=== PATIENT | male | born 1975 | race Caucasian/White ===

== ENCOUNTER 2019-12-23 17:24 | Emergency (ER) | payer BC ==
[~2019-12-23] VITALS: Ht 165.1 cm; Wt 70.3 kg
[~2019-12-23 17:24] MED LIST: ALPR.5T PO; HYDR1TAB PO
[2019-12-23] MEDS ORDERED: FLUORESCEIN (FLUOR-I-STRIPS) 1 MG STRP OU ONE (17:45)
[2019-12-23] MEDS ORDERED: BSS 15 ML IR ONE (17:45)
[2019-12-23] MEDS ORDERED: TETRACAINE 0.5% OPHTH SOLN 4 ML BTL (SINGLE DOSE ONLY) OU ONE (17:45)
[2019-12-23] MEDS ORDERED: GENT3.5O6 OP (17:58)
[2019-12-23] MEDS ORDERED: HYDR-4226 PO (17:58)
--- NOTE | 2019-12-23 17:58 | ED EENT ---
History of Present Illness General Chief Complaint: Eye Problems Stated Complaint: EYE INJ Nursing Triage Note: states sawdust in his left eye. states flushed eye. Source: patient Exam Limitations: no limitations History of Present Illness Date Seen by Provider: Dec 23, 2019 Time Seen by Provider: 17:53 Initial Comments To ER with sawdust in the left eye after a remodeling job at a house today. Normally he is able to call his friend Dr. Olmstead to look at his eye but was unable to get a hold of him today. He irrigated the eye at home with Visine and tap water. Timing/Duration: abrupt Severity: moderate Location: eye (L) Associated Symptoms: denies symptoms Allergies and Home Medications Allergies Coded Allergies: No Known Drug Allergies (Unverified , 07/13/13) Home Medications Alprazolam 0.5 Mg Tablet, 0.5 MG PO PRN, (Reported) Patient Home Medication List Home Medication List Reviewed: Yes Review of Systems Review of Systems Constitutional: see HPI Eyes: See HPI Ears: No Symptoms Reported Nose: no symptoms reported Mouth: no symptoms reported Throat: no symptoms reported Respiratory: no symptoms reported Cardiovascular: no symptoms reported Musculoskeletal: no symptoms reported Skin: no symptoms reported Past Xnzwrvo-Fjwwzb-Uufplw Hx Patient Social History Recent Foreign Travel: No Contact w/Someone Who Travel: No Recent Infectious Disease Expo: No Past Medical History Anxiety Physical Exam Vital Signs Vital Signs - First Documented 12/23/19 17:30 Temp 37.2 Pulse 80 Resp 20 B/P (MAP) 161/92 (115) Pulse Ox 96 O2 Delivery Room Air Height, Weight, BMI Height: '" Weight: 150lbs. oz. 68.354251lf; 25.00 BMI Method:Stated General Appearance: WD/WN, no apparent distress Eyes: left eye other (with fluorescein staining there are several vertically oriented abrasion superficially to the lateral aspect of the left cornea. There is a larger irregular shaped about 1-2 mm abrasion to the cornea at the 2:00 position. There is a small questionable foreign body identified in the lower conjunctival fold, this was removed with sterile Q-tip. The eye was then irrigated with saline here and an additional drop of tetracaine was applied. After the initial application of tetracaine his pain was significantly improved.); bilateral eye PERRL, bilateral eye EOMI Nose: normal inspection Mouth/Throat: normal mouth inspection Neck: non-tender, full range of motion Respiratory: no respiratory distress, no accessory muscle use Neurologic/Psychiatric: alert, normal mood/affect, oriented x 3 Skin: normal color, warm/dry Progress/Results/Core Measures Results/Orders My Orders Orders - ROSAURA ALCANTARA APRN Tetracaine 0.5% Ophth Fariba Sdv (Tetracai (12/23/19 17:45) Fluorescein Strips (Ailxf-C-Vtrwlx) (12/23/19 17:45) Balanced Salt Irrigation Soln (Bss Irrig (12/23/19 17:45) Medications Given in ED Current Medications Medications Dose Ordered Sig/Silvano Route Start Time Stop Time Status Last Admin Dose Admin Balanced Salt Solution 15 ml ONCE ONCE IR 12/23/19 17:45 12/23/19 17:46 DC 12/23/19 17:45 15 ML Fluorescein Sodium 1 mg ONCE ONCE OU 12/23/19 17:45 12/23/19 17:46 DC 12/23/19 17:45 1 MG Tetracaine HCl 4 ml ONCE ONCE OU 12/23/19 17:45 12/23/19 17:46 DC 12/23/19 17:45 4 ML Vital Signs/I&O 12/23/19 17:30 Temp 37.2 Pulse 80 Resp 20 B/P (MAP) 161/92 (115) Pulse Ox 96 O2 Delivery Room Air Blood Pressure Mean: 115 Departure Impression Primary Impression: Corneal abrasion Qualified Codes: S05.02XA - Injury of conjunctiva and corneal abrasion without foreign body, left eye, initial encounter Disposition: HOME, SELF-CARE Condition: Stable Departure-Patient Inst. Decision time for Depature: 17:55 Referrals: SIOMARA WHITE MD (PCP/Family) Primary Care Physician Patient Instructions: Corneal Abrasion Add. Discharge Instructions: 1. Call Dr. Olmstead for follow-up whenever he can see you, preferably within the next 2-3 days. Use the antibiotic eye ointment and the pain medication as directed. Return to ER for any other concerns. All discharge instructions reviewed with patient and/or family. Voiced understanding. Scripts Hydrocodone/Acetaminophen (Floral 5-325 Tablet) 1 Each Tablet 1 TAB PO Q6H for Pain MDD 10 TABS for 7 Days, #10 TAB Prov: ROSAURA ALCANTARA APRN 12/23/19 Gentamicin Sulfate (Gentamicin Sulfate) 3.5 Gm Oint...g. 0.5 INCH OP TID for 3 Days, #1 TUBE Apply to the lower conjunctival sac Prov: ROSAURA ALCANTARA APRN 12/23/19 ROSAURA ALCANTARA APRN Dec 23, 2019 17:58
[2019-12-23 18:02] VITALS: BP 126/78
== END 2019-12-23 18:02 | disposition home or self-care (01) ==
LOC: EDUNIT# 17:24 → ER 17:26
DX: S05.02XA Injury of conjunctiva and corneal abrasion without foreign body, left eye, initial encounter (principal); F41.9 Anxiety disorder, unspecified; X58.XXXA Exposure to other specified factors, initial encounter; Y92.019 Unspecified place in single-family (private) house as the place of occurrence of the external cause
CPT/HCPCS: 65205

== ENCOUNTER → 2022-03-31 | Outpatient (CLI) | payer OTHER ==
[~2022-03-31] MED LIST changes: +GENT3.5O6 OP; +HYDR-4226 PO
--- NOTE | 2022-03-31 09:22 | Diagnostic Imaging Report ---
INDICATION: Screening for MRI. TIME OF EXAM: 8:50 AM. FINDINGS: Two views of the orbits were obtained. No radiopaque orbital foreign bodies are detected. IMPRESSION: No radiopaque orbital foreign body is detected to preclude MRI. Dictated by: Dictated on workstation # [id number]
--- NOTE | 2022-03-31 10:48 | Diagnostic Imaging Report ---
PROCEDURE: MRI lumbar spine. TECHNIQUE: Multiplanar, multisequence MRI of the lumbar spine was performed without contrast. INDICATION: Muscle, fascia pain in low back. Injury lifting heavy object. EXAMINATION: Lumbar spine MRI without contrast, 03/31/2022. FINDINGS: The visualized cord and tip of the conus are unremarkable in appearance and location. Alignment of the spine demonstrates grade 1 anterolisthesis at L5-S1 with remaining alignment preserved. L1-L2: There is bilateral facet and ligamentum flavum hypertrophy. There is no central stenosis. The neural foramina demonstrate aevy-ik-avhzuopp bilateral neural foraminal stenosis. L2-L3: There is bilateral facet hypertrophy. No central stenosis. There is mild bilateral neural foraminal narrowing. L3-L4: There is a mild broad-based bulging disc with bilateral facet and ligamentum flavum hypertrophy. There is no significant central stenosis. There is moderate bilateral neural foraminal narrowing. L4-L5: There is disc desiccation with a central disc protrusion containing an annular tear. There is bilateral facet hypertrophy. There is mild central narrowing. There is severe bilateral neural foraminal stenosis. L5-S1: There is a broad-based bulging disc containing a diffuse annular tear. There is bilateral facet and ligamentum flavum hypertrophy. There is no significant central stenosis. There is severe left and [id number] right neural foraminal stenosis. The visualized intra-abdominal structures appear unremarkable. IMPRESSION: 1. Multilevel diffuse degenerative findings as noted above. Dictated by: Dictated on workstation # [id number]
== END ==
LOC: RAD 08:45
PROVIDERS: ATTEND Nurse Practitioner Family
DX: M47.816 Spondylosis without myelopathy or radiculopathy, lumbar region (principal); M47.817 Spondylosis without myelopathy or radiculopathy, lumbosacral region; M51.26 Other intervertebral disc displacement, lumbar region; M51.27 Other intervertebral disc displacement, lumbosacral region; M51.36 Other intervertebral disc degeneration, lumbar region; M51.37 Other intervertebral disc degeneration, lumbosacral region; M48.061 Spinal stenosis, lumbar region without neurogenic claudication; M48.07 Spinal stenosis, lumbosacral region
CPT/HCPCS: 72148

== ENCOUNTER → 2022-07-14 | Outpatient (CLI) | payer BC, OTHER ==
--- NOTE | 2022-07-14 19:34 | Diagnostic Imaging Report ---
MRI LT UPPER EXT JOINT W/O TECHNIQUE: Multiplanar, multisequence MR imaging of the left shoulder was performed without contrast. COMPARISON: None available. INDICATION: Left shoulder pain. FINDINGS: Rotator cuff: The supraspinatus, infraspinatus, teres minor, and subscapularis are all intact. No rotator cuff muscle atrophy or edema. Glenoid labrum: There is linear signal within the superior labrum, which could represent a nondisplaced superior labral tear. No paralabral cyst. Long head of biceps: Long head of biceps is normally positioned within the bicipital groove. The intracapsular segment is intact. Bones and cartilage: Humeral head is normal in morphology without fracture or focal osseous lesion. No glenohumeral chondromalacia. Mild hypertrophic degenerative changes of the AC joint. Soft tissues: No glenohumeral joint effusion. Mild pericapsular edema of the glenohumeral joint. No fluid or inflammatory like signal within the subacromial/subdeltoid space to indicate bursitis. IMPRESSION: 1. Possible nondisplaced superior labral tear. If it will alter the patient's management, then consideration could be given to a follow-up MR arthrogram to provide more sensitive assessment for a labral tear. 2. No rotator cuff tear. 3. Imaging features raise the possibility of adhesive capsulitis. Correlation with physical exam is advised. Dictated by: Dictated on workstation # [id number]
== END ==
LOC: RAD 15:05
PROVIDERS: ATTEND Nurse Practitioner Family
DX: Z04.2 Encounter for examination and observation following work accident (principal); S43.422A Sprain of left rotator cuff capsule, initial encounter; X58.XXXA Exposure to other specified factors, initial encounter
CPT/HCPCS: 73221